=== PATIENT | male | born 1965 | race Caucasian/White ===

== ENCOUNTER 2023-09-28 07:20 | Outpatient (OUT) | payer BC, SELFPAY ==
[2023-09-28 07:58] LABS: Basophils Percent Auto 0.7 % (0.2-2.0); Eosinophils Absolute Auto 0.3 10^3/uL (0.0-0.7); Eosinophils Percent Auto 4.4 % (0.9-7.0); Hemoglobin 14.1 g/dL (14.0-18.0); Immature Granulocytes Abs Auto 0.03 10^3/uL (0.00-0.03); Immature Granulocytes Pct Auto 0.5 % (0.0-0.5); Lymphocytes Absolute Auto 1.3 10^3/uL (1.2-3.8); Lymphocytes Percent Auto 22.6 % (20.5-60.0); Mean Corpuscular Hemoglobin 27.9 pg (25.9-34.0); Mean Corpuscular Volume 87.1 fL (80.0-94.0); Mean Platelet Volume 11.7 fL (9.5-13.5); Monocytes Absolute Auto 0.6 10^3/uL (0.3-0.8); Monocytes Percent Auto 10.2 % (1.7-12.0); Neutrophils Absolute Auto 3.5 10^3/uL (1.4-6.5); Neutrophils Percent Auto 61.6 % (43.0-75.0); Platelet Count 186 10^3/uL (150-450); Red Blood Count 5.05 10^6/uL (4.70-6.10); Red Cell Distribution Width 13.8 % (11.0-15.0); White Blood Count 5.7 10^3/uL (4.0-11.0)
[2023-09-28 08:39] LABS: Prostate Specific Antigen Scrn 1.23 ng/mL (<=4.00)
[2023-09-28 11:34] LABS: Alanine Aminotransferase 55 U/L (16-63); Albumin Globulin Ratio 1.2; Albumin Level 3.8 g/dL (3.4-5.0); Alkaline Phosphatase 92 U/L (46-116); Anion Gap 10.9; Aspartate Amino Transferase 24 U/L (15-37); Bilirubin Direct 0.1 mg/dL (0.0-0.2); Bilirubin Total 0.7 mg/dL (0.2-1.0); Calcium 8.6 mg/dL (8.5-10.1); Carbon Dioxide 27.2 mmol/L (21.0-32.0); Chloride 105 mmol/L (98-107); Chol HDL Ratio 4.7; Cholesterol 166 mg/dL (<=200); Estimated GFR (African America >60 (>=60); Estimated GFR (Non-African Ame >60 (>=60); Globulin 3.3 g/dL; Glucose 134 mg/dL (74-106); HDL Cholesterol 35 mg/dL (40-60); Potassium 4.1 mmol/L (3.5-5.1); Sodium 139 mmol/L (136-145); Thyroid Stimulating Hormone 3.821 uIU/mL (0.358-3.740); Total Protein 7.1 g/dL (6.4-8.2); Triglycerides 135 mg/dL (<=150)
[2023-09-28 12:28] LABS: Estimated Average Glucose 128 mg/dL; Glycohemoglobin A1C 6.1 % (4.5-6.2)
== END 2023-09-28 07:21 | disposition home or self-care (01) ==
LOC: LAB 07:20
PROVIDERS: PCP Family Medicine; Visit Provider Family Medicine
DX: Z00.00 Encounter for general adult medical examination without abnormal findings (principal)
CPT/HCPCS: 36415; 80048; 80061; 80076; 83036; 84443; 85025; G0103

== ENCOUNTER 2024-12-12 07:28 | Outpatient (OUT) | payer BC, SELFPAY ==
--- OUTSIDE RECORDS SUMMARY | 2024-12-12 07:30 | XMS_ITS | CCD ---
Author Organization [facility] Care Team Providers Care Print Room Worker Name Role Phone KAT, DR SHARATH Alexis Primary Care Unavailable KASH WOLFE Attending Unavailable AIDEN, KASH Consulting Unavailable AIDEN, KASH Admitting Unavailable KAT, DR SHARATH Alexis Primary Care Unavailable KAT, DR SHARATH Alexis Admitting Unavailable KAT, DR SHARATH Alexis Attending Unavailable KAT, DR SHARATH Alexis Consulting Unavailable KAT, DR SHARATH Alexis Admitting Unavailable KAT, DR SHARATH Alexis Attending Unavailable KASH WOLFE Consulting Unavailable KAT, DR SHARATH Alexis Primary Care Unavailable KAT, DR SHARATH Alexis Admitting Unavailable ALICEA, DR SHARATH Alexis Attending Unavailable KAT, DR SHARATH Alexis Consulting Unavailable KAT, DR SHARATH Alexis Primary Care Unavailable Leann Franco Attending Unavailable Marissa Tsai Unavailable SABINO MORFIN Attending Unavailable Medications Current Medications Medication Drug Class(es) Dates Sig (Normalized) Sig (Original) benzonatate 100 mg oral capsule (1 source) Non-narcotic Antitussive Start: 07-19-2023 take 1 capsule by mouth three times daily as needed Tessalon Perles 100 MG 1 capsule as needed Orally Three times a day for 7 days Jun, Active bisoprolol fumarate 5 mg / hydroCHLOROthiazide 6.25 mg oral tablet (1 source) Thiazide Diuretic, beta-Adrenergic Tyrone Bisoprolol-hydr oCHLOROthiazide 5-6.25 MG Oral for 90 Days Active predniSONE 20 mg oral tablet (1 source) Start: 07-19-2023 take 1 tablet by mouth every twelve hours prednisone 20 MG 1 tablet Orally BID for 5 Jun, Active Completed/Discontinued Medications Medication Drug Class(es) Dates Sig (Normalized) Sig (Original) sildenafil 100 mg oral tablet (1 source) Phosphodiesterase 5 Inhibitor take 1 tablet by mouth once daily as needed Sildenafil Citrate 100 MG TAKE 1 TABLET BY MOUTH EVERY DAY NEEDED Oral for 30 Days Not-Taking Problems Active Problems Problem Classification Problem Date Documented Da te Episodic/Chronic Other screening for suspected conditions (not mental disorders or infectious disease) (1 source) Encounter for screening for malignant neoplasm of prostate; Translations: [ENC SCREEN MALIG NEOPLASM PROSTATE] Onset: 09-30-2022 Episodic Other upper respiratory infections (1 source) Acute upper respiratory infection, unspecified Episodic Unclassified (3 sources) CONTACT W/AND (SUSP) EXPOS COVID-19; Translations: [CONTACT W/AND (SUSP) EXPOS COVID-19] Onset: 02-18-2022 Viral infection (1 source) COVID-19; Translations: [COVID-19] Onset: 02-12-2022 Past or Other Problems Problem Classification Problem Date Documented Da te Episodic/Chronic Unclassified (1 source) CONTACT W/AND (SUSP) EXPOS COVID-19; Translations: [CONTACT W/AND (SUSP) EXPOS COVID-19] Onset: 02-17-2022 Unclassified (1 source) Contact with and (suspected) exposure to covid-19 Z20.822 Results Test Name Value Interpretation Reference Range Facility COVID + FLU Quick Testingon 07-19-2023 SARS-CoV-2 (COVID-19) RNA SALENA+probe Ql (Unsp spec) Negative [facility] [employer] Other COVID + FLU Quick Testing Negative [facility] [employer] Other Lab [facility] 04-12-2023 Lab Reports [id number]#[id number]:127 Normal [facility] Formson 03-22-2023 Forms [id number]#[id number]:127 Normal [facility] Ambulatory Visit Summaryon 0 03-08-2023 Ambulatory Visit Summary LINNETTE MARTINEZ :1965 Visit Date:03/08/2023 Ambulatory Visit Instructions Your Diagnosis Hypertension Erectile dysfunction Colon cancer screening BMI 32.0-32.9,adult Non-smoker Your Care Team Attending Physician - Leann Parsons Primary Care Physician - Leann Parsons This Is Your Medications List bisoprolol-hydroch lorothiazide (bisoprolol-hydroc hlorothiazide 5 mg-6.25 mg Tab) sildenafil (sildenafil 100 mg Tab) Discharge Vitals Temperature (Oral) 36.5 ?C Heart Rate (Peripheral) 64 Respiratory Rate 16 Blood Pressure 136/84 Height 182 cm Height 72 in Weight 107.5 kg Weight 236.5 lb BMI 32.45 Medications What How Much When Instructions Changed bisoprolol-hydroch lorothiazide (bisoprolol-hydroc hlorothiazide 5 mg-6.25 mg Tab) 1 Tablets By Mouth Every day Pickup at [facility] Changed sildenafil (sildenafil 100 mg Tab) 1 Tablets By Mouth Every day as needed for Other (see comment) 1 hour before sexual activity Pickup at [facility] Pharmacy Information [facility]: [address] [facility] LUIS CARLOS Diaz [phone] [facility]: [address] [place], [place] [phone] Allergies No Known Allergies Problems Ongoing - Any problem that you are currently receiving treatment for. Colon cancer screening Erectile dysfunction Hypertension [facility] Ambulatory Visit Summary LINNETTE MARTINEZ :1965 Visit Date:03/08/2023 Ambulatory Visit Instructions Your Diagnosis Hypertension Erectile dysfunction Colon cancer screening BMI 32.0-32.9,adult Non-smoker Your Care Team Attending Physician - Leann Parsons Primary Care Physician - Leann Parsons This Is Your Medications List bisoprolol-hydroch lorothiazide (bisoprolol-hydroc hlorothiazide 5 mg-6.25 mg Tab) sildenafil (sildenafil 100 mg Tab) Discharge Vitals Temperature (Oral) 36.5 ?C Heart Rate (Peripheral) 64 Respiratory Rate 16 Blood Pressure 136/84 Height 182 cm Height 72 in Weight 107.5 kg Weight 236.5 lb BMI 32.45 Medications What How Much When Instructions Changed bisoprolol-hydroch lorothiazide (bisoprolol-hydroc hlorothiazide 5 mg-6.25 mg Tab) 1 Tablets By Mouth Every day Pickup at [facility] Changed sildenafil (sildenafil 100 mg Tab) 1 Tablets By Mouth Every day as needed for Other (see comment) 1 hour before sexual activity Pickup at [facility] Pharmacy Information [facility]: [address] [facility] Koby CaroLUIS CARLOS [phone] [facility]: [address] [place] [phone] Allergies No Known Allergies Problems Ongoing - Any problem that you are currently receiving treatment for. Colon cancer screening Erectile dysfunction Hypertension [facility] Ambulatory Visit Summary MICHELLEYOSELYNLINNETTE J :1965 Visit Date:03/08/2023 Ambulatory Visit Instructions Your Diagnosis Hypertension Erectile dysfunction BMI 32.0-32.9,adult Non-smoker Your Care Team Attending Physician - Leann Parsons Primary Care Physician - Leann Parsons This Is Your Medications List bisoprolol-hydroch lorothiazide (bisoprolol-hydroc hlorothiazide 5 mg-6.25 mg Tab) sildenafil (sildenafil 100 mg Tab) Discharge Vitals Temperature (Oral) 36.5 ?C Heart Rate (Peripheral) 64 Respiratory Rate 16 Blood Pressure 136/84 Height 182 cm Height 72 in Weight 107.5 kg Weight 236.5 lb BMI 32.45 Medications What How Much When Instructions Changed bisoprolol-hydroch lorothiazide (bisoprolol-hydroc hlorothiazide 5 mg-6.25 mg Tab) 1 Tablets By Mouth Every day Pickup at [facility] Changed sildenafil (sildenafil 100 mg Tab) 1 Tablets By Mouth Every day as needed for Other (see comment) 1 hour before sexual activity Pickup at [facility] Pharmacy Information [facility]: [address] [facility] Koby LUIS CARLOS Caro [phone] [facility]: [address] [place] [phone] Allergies No Known Allergies Problems Ongoing - Any problem that you are currently receiving treatment for. Erectile dysfunction Hypertension [facility] Family Medicine Office/Clini c Noteon 03-08-2023 Family Medicine Office/Clinic Note HPI Staff Linnette is a 57 year old male presenting to establish care Establish Care: History: Any previous diagnosis: HTN, ADENIKE, ED History of seeing any specialist: Ophthalmolgist Dr Walters When was your last doctors visit: Last provider: Dr Alicea Any recent labs: 09/29/22 Health Maintenance UTD: Colonoscopy: 2007 Acute: Current issues/complaints: pt needs refill on Bisoprolol , no concerns History of Present Illness pt presents today to establish care Review of Systems PHQ Score Initial Depression Screen Score: 0 ROS - Provider Constitutional: no fever, no chills, no sweats, no fatigue Respiratory: no shortness of breath, no cough, no orthopnea, no wheezing. Cardiovascular: no chest pain, no palpitations, no edema. Neurologic: no headache, no dizziness, no numbness, no weakness. Physical Exam Vitals & Measurements T: 36.5 ?C(Oral) HR: 64(Peripheral) RR: 16 BP: 136/84 SpO2: 98% HT: 72 in HT: 182 cm WT: 107.5 kg WT: 236.5 lb BMI: 32.45 General: alert, no acute distress ENMT: oral mucosa moist, no pharyngeal erythema or exudate Cardiovascular: regular rate and rhythm, normal peripheral perfusion Respiratory: Lungs CTA, respirations non labored Extremities: no deformity, no trauma Neurological: oriented x 4, LOC appropriate for age, CN II-XII intact, motor strength equal & normal bilaterally, speech normal Assessment/Plan 1. Hypertension (I10: Essential (primary) hypertension) pt presents today to establish care. is in need of refills on BP medication. labs from September reviewed. lab slip for [facility] provided pt will have them drawn in September again and he will return to office after have labs drawn to review. all questions answered. RTC in September for wellness exam 2. Erectile dysfunction (N52.9: Male erectile dysfunction, unspecified) pt is in need of refill. asks to send it to [facility] 3. BMI 32.0-32.9,adult (Z68.32: Body mass index [BMI] 32.0-32.9, adult) BMI education complete 4. Non-smoker (Z78.9: Other specified health status) continue not smoking Orders: bisoprolol-hydroch lorothiazide, 1 tab(s), Oral, Daily, 90 tab(s), Refill(s) 2, [facility], 182, cm, 03/08/23 8:24:00 EDT, Height/Length Dosing, 107.5, kg, 03/08/23 8:24:00 EDT, Weight Dosing sildenafil, 100 mg = 1 tab(s), Oral, Daily, PRN Other (see comment), 1 hour before sexual activity, # 30 tab(s), Refills(s) 1, Pharmacy: [facility], 182, cm, 03/08/23 8:24:00 EDT, Height/Length Dosing, 107.5, kg, 03/08/23 8:24:00 EDT, Weight Dosing Follow-up No qualifying data available Problem List/Past Medical History Ongoing Erectile dysfunction Hypertension Historical No qualifying data Medications bisoprolol-hydroch lorothiazide 5 mg-6.25 mg Tab, 1 tab(s), Oral, Daily, 2 refills sildenafil 100 mg Tab, 100 mg= 1 tab(s), Oral, Daily, PRN, 1 refills Allergies No Known Allergies Social History Tobacco Never (less than 100 in lifetime) Tobacco Use:. Never Smokeless Tobacco Use:. Household tobacco concerns: No., 03/08/2023 Family History Hyperlipidemia: Mother. Hypertension: Mother. Thrombus: Mother and Father. Immunizations Vaccine Date Status SARS-CoV-2 (COVID-19) mRNA-1273 vaccine 10/01/2020 Recorded SARS-CoV-2 (COVID-19) mRNA-1273 vaccine 09/02/2020 Recorded Normal [facility] Comment on above: Result Comment: Elec tronically Signed By: Leann Parsons\.br\Date and Time Signed: 03/08/23 08:44 EDT Lab Report[facility] 03-03-2023 Lab Reports [id number]:127 Normal [facility] CBC AUTO DIFFon 09-29-2022 BASO # 0.1 103/ul Normal 0.0-0.1 [facility] Comment on above: Performed By: #### C BC #### [facility] [address] [place] [address] Dr. Miguel Maharaj Basophils/100 WBC (Bld) 0.7 % Normal 0.2-2.0 [facility] Comment on above: Performed By: #### C BC #### [facility] [address] [place] [address] Dr. Miguel Maharaj EO # 0.3 103/ul Normal 0.0-0.7 [facility] Comment on above: Performed By: #### C BC #### [facility] [address] [place] [address] Dr. Miguel Maharaj Eosinophils/100 WBC (Bld) 3.8 % Normal 0.9-7.0 [facility] Comment on above: Performed By: #### C BC #### [facility] [address] [place] [address] Dr. Miguel Maharaj Erythrocyte distribution width (RBC) [Ratio] 12.9 % Normal 11.0-15.0 [facility] Comment on above: Performed By: #### C BC #### [facility] [address] [place] [address] Dr. Miguel Maharaj Hematocrit (Bld) [Volume fraction] 44.9 % Normal 42.0-54.0 [facility] Comment on above: Performed By: #### C BC #### [facility] [address] [place] [address] Dr. Miguel Maharaj Hemoglobin (Bld) [Mass/Vol] 14.7 g/dL Normal 14.0-18.0 [facility] Comment on above: Performed By: #### C BC #### [facility] [address] [place] [address] Dr. Miguel Maharaj IG # 0.02 10e3/ul Normal 0.00-0.03 [facility] Comment on above: Performed By: #### C BC #### [facility] [address] [place] [address] Dr. Miguel Maharaj IG % 0.3 % Normal 0.0-0.5 [facility] Comment on above: Performed By: #### C BC #### [facility] [address] [place] [address] Dr. Miguel Maharaj LYMPH # 1.3 103/ul Normal 1.2-3.8 [facility] Comment on above: Performed By: #### C BC #### [facility] [address] [place] [address] Dr. Miguel Maharaj Lymphocytes/100 WBC (Bld) 19.0 % Critically low 20.5-60.0 [facility] Comment on above: Performed By: #### C BC #### [facility] [address] [place] [address] Dr. Miguel Maharaj MANUAL DIFF REQ NO Normal [facility] Comment on above: Performed By: #### C BC #### [facility] [address] [place] [address] Dr. Miguel Maharaj MCH (RBC) [Entitic mass] 29.1 pg Normal 25.9-34.0 [facility] Comment on above: Performed By: #### C BC #### [facility] [address] [place] [address] Dr. Miguel Maharaj MCHC (RBC) [Mass/Vol] 32.7 g/dL Normal 29.9-35.2 [facility] Comment on above: Performed By: #### C BC #### [facility] [address] [place] [address] Dr. Miguel Maharaj MCV (RBC) [Entitic vol] 88.7 fL Normal 80.0-94.0 [facility] Comment on above: Performed By: #### C BC #### [facility] [address] [place] [address] Dr. Miguel Maharaj MONO # 0.7 103/ul Normal 0.3-0.8 [facility] Comment on above: Performed By: #### C BC #### [facility] [address] [place] [address] Dr. Miguel Maharaj Monocytes/100 WBC (Bld) 9.6 % Normal 1.7-12.0 [facility] Comment on above: Performed By: #### C BC #### [facility] [address] [place] [address] Dr. Miguel Maharaj NEUT # 4.6 103/ul Normal 1.4-6.5 [facility] Comment on above: Performed By: #### C BC #### [facility] [address] [address] [address] Miguel Maharaj Neutrophils/100 WBC (Bld) 66.6 % Normal 43.0-75.0 [facility] Comment on above: Performed By: #### C BC #### [facility] [address] [place] [address] Dr. Miguel Maharaj Platelet mean volume (Bld) [Entitic vol] 12.0 fL Normal 9.5-13.5 [facility] Comment on above: Performed By: #### C BC #### [facility] [address] [place] [address] Dr. Miguel Maharaj PLT 187 103/ul Normal 150-450 [facility] Comment on above: Performed By: #### C BC #### [facility] [address] [place] [address] Dr. Miguel Maharaj RBC 5.06 106/ul Normal 4.70-6.10 [facility] Comment on above: Performed By: #### C BC #### [facility] [address] [place] [address] Dr. Miguel Maharaj WBC 6.9 103/ul Normal 4.0-11.0 [facility] Comment on above: Performed By: #### C BC #### [facility] [address] [place] [address] Dr. Miguel Maharaj GLYCOHEMOGLOBIN A1Con 2022 ADA RECOMMENDATION SEE BELOW Normal [facility] Comment on above: Result Comment: ADA RECOMMENDED LIMIT 4.0 - 6.0 ADA THERAPEUTIC TARGET < 7.0 ACTION SUGGESTED > 7.0 Performed By: #### L IPID, CMP #### [facility] [address] [place] [address] Dr. Miguel Maharaj Glucose [Mass/Vol] 123 mg/dL Normal [facility] Comment on above: Performed By: #### L IPID, CMP #### [facility] [address] [place] [address] Dr. Miguel Maharaj HbA1c (Bld) [Mass fraction] 5.9 % Normal 4.5-6.2 [facility] Comment on above: Performed By: #### L IPID, CMP #### [facility] [address] [place], [place] [address] Dr. Miguel Maharaj LIPID PROFILEon 09-29-2022 CHOL-HDL RATIO NORM SEE BELOW Normal [facility] Comment on above: Result Comment: 3.3 - 4.4 LOW RISK 4.4 - 7.1 AVERAGE RISK 7.1 - 11.0 MODERATE RISK >11.0 HIGH RISK Performed By: #### L IPID, CMP #### [facility] [address] [address] [address] Miguel Maharaj Cholesterol [Mass/Vol] 161 mg/dL Normal <=200 [facility] Comment on above: Performed By: #### L IPID, CMP #### [facility] [address] [address] [address] Miguel Maharaj Cholesterol in HDL [Mass/Vol] 34 mg/dL Critically low 40-60 [facility] Comment on above: Performed By: #### L IPID, CMP #### [facility] [address] [address] [address] Miguel Maharaj Cholesterol in LDL [Mass/Vol] 101.0 mg/dL Normal [facility] Comment on above: Performed By: #### L IPID, CMP #### [facility] [address] [place], [place] [address] Dr. Miguel Maharaj Cholesterol.total/Ch olesterol in HDL [Mass ratio] 4.7 {ratio} Normal [facility] Comment on above: Performed By: #### L IPID, CMP #### [facility] [address] [place], [place] [address] Dr. Miguel Maharaj HDL NORMAL > or = 60 mg/dl - LOW CARDIOVASCULAR RISK <40 mg/dl - HIGH CARDIOVASCULAR RISK Normal [facility] Comment on above: Performed By: #### L IPID, CMP #### [facility] [address] [id number] [address] Miguel Maharaj LDL CALC NORMAL SEE BELOW Normal [facility] Comment on above: Result Comment: <100 mg/dl OPTIMAL 100 - 129 mg/dl NEAR OR ABOVE OPTIMAL 130 - 159 mg/dl BORDERLINE HIGH 160 - 189 mg/dl HIGH >190 mg/dl VERY HIGH Performed By: #### L IPID, CMP #### [facility] [address] [place] [address] Dr. Miguel Maharaj Triglyceride [Mass/Vol] 130 mg/dL Normal <=150 [facility] Comment on above: Performed By: #### L IPID, CMP #### [facility] [address] [place] [address] Dr. Miguel Maharaj VLDL CALC 26.0 mg/dL Normal [facility] Comment on above: Performed By: #### L IPID, CMP #### [facility] [address] [place] [address] Dr. Miguel Maharaj PROF 14(COMP METB)on 023 Albumin [Mass/Vol] 4.0 g/dL Normal 3.4-5.0 [facility] Comment on above: Performed By: #### L IPID, CMP #### [facility] [address] [place] [address] Dr. Miguel Maharaj Albumin/Globulin [Mass ratio] 1.3 {ratio} Normal [facility] Comment on above: Performed By: #### L IPID, CMP #### [facility] [address] [place] [address] Dr. Miguel Maharaj ALP [Catalytic activity/Vol] 95 U/L Normal 46-116 [facility] Comment on above: Performed By: #### L IPID, CMP #### [facility] [address] [place] [address] Dr. Miguel Maharaj ALT [Catalytic activity/Vol] 52 U/L Normal 16-63 [facility] Comment on above: Performed By: #### L IPID, CMP #### [facility] [address] [place] [address] Dr. Miguel Maharaj Anion gap [Moles/Vol] 14.8 mmol/L Normal [facility] Comment on above: Performed By: #### L IPID, CMP #### [facility] [address] [address] [address] Miguel Maharaj AST [Catalytic activity/Vol] 27 U/L Normal 15-37 [facility] Comment on above: Performed By: #### L IPID, CMP #### [facility] [address] [place] [address] Dr. Miguel Maharaj Bilirubin [Mass/Vol] 0.6 mg/dL Normal 0.2-1.0 [facility] Comment on above: Performed By: #### L IPID, CMP #### [facility] [address] [place] [address] Dr. Miguel Maharaj Calcium [Mass/Vol] 8.7 mg/dL Normal 8.5-10.1 [facility] Comment on above: Performed By: #### L IPID, CMP #### [facility] [address] [place] [address] Dr. Miguel Maharaj Chloride [Moles/Vol] 105 mmol/L Normal 98-107 [facility] Comment on above: Performed By: #### L IPID, CMP #### [facility] [address] [place] [address] Dr. Miguel Maharaj CO2 [Moles/Vol] 25.5 mmol/L Normal 21.0-32.0 [facility] Comment on above: Performed By: #### L IPID, CMP #### [facility] [address] [place] [address] Dr. Miguel Maharaj Creatinine [Mass/Vol] 0.94 mg/dL Normal 0.70-1.30 [facility] Comment on above: Performed By: #### L IPID, CMP #### [facility] [address] [place] [address] Dr. Miguel Maharaj EGFR-AF FRENCH >60 Normal >=60 [facility] Comment on above: Performed By: #### L IPID, CMP #### [facility] [address] [place] [address] Dr. Miguel Maharaj EGFR-NON AF FRENCH >60 Normal >=60 [facility] Comment on above: Performed By: #### L IPID, CMP #### [facility] [address] [address] [address] Miguel Maharaj Globulin (S) [Mass/Vol] 3.2 g/dL Normal [facility] Comment on above: Performed By: #### L IPID, CMP #### [facility] [address] [place] [address] Dr. Miguel Maharaj Glucose [Mass/Vol] 132 mg/dL Critically high 74-106 [facility] Comment on above: Performed By: #### L IPID, CMP #### [facility] [address] [place] [address] Dr. Miguel Maharaj Potassium [Moles/Vol] 4.3 mmol/L Normal 3.5-5.1 [facility] Comment on above: Performed By: #### L IPID, CMP #### [facility] [address] [place] [address] Dr. Miguel Maharaj Protein [Mass/Vol] 7.2 g/dL Normal 6.4-8.2 [facility] Comment on above: Performed By: #### L IPID, CMP #### [facility] [address] [place] [address] Dr. Miguel Maharaj Sodium [Moles/Vol] 141 mmol/L Normal 136-145 [facility] Comment on above: Performed By: #### L IPID, CMP #### [facility] [address] [place] [address] Dr. Miguel Maharaj Urea nitrogen [Mass/Vol] 16.0 mg/dL Normal 7.0-18.0 [facility] Comment on above: Performed By: #### L IPID, CMP #### [facility] [address] [place] [address] Dr. Migeul Maharaj Urea nitrogen/Creatinine [Mass ratio] 17.0 mg/mg Normal [facility] Comment on above: Performed By: #### L IPID, CMP #### [facility] [address] [place] [address] Dr. Miguel Maharaj CBC AUTO DIFFon 02-24-2022 BASO # 0.1 103/ul Normal 0.0-0.1 [facility] Comment on above: Performed By: #### C BC #### [facility] [address] [address] [address] Miguel Maharaj Basophils/100 WBC (Bld) 0.9 % Normal 0.2-2.0 [facility] Comment on above: Performed By: #### C BC #### [facility] [address] [address] [address] Miguel Maharaj EO # 0.3 103/ul Normal 0.0-0.7 [facility] Comment on above: Performed By: #### C BC #### [facility] [address] [place] [address] Dr. Miguel Maharaj Eosinophils/100 WBC (Bld) 4.0 % Normal 0.9-7.0 [facility] Comment on above: Performed By: #### C BC #### [facility] [address] [place] [address] Dr. Miguel Maharaj Erythrocyte distribution width (RBC) [Ratio] 12.8 % Normal 11.0-15.0 [facility] Comment on above: Performed By: #### C BC #### [facility] [address] [place] [address] Dr. Miguel Maharaj Hematocrit (Bld) [Volume fraction] 42.9 % Normal 42.0-54.0 [facility] Comment on above: Performed By: #### C BC #### [facility] [address] [place] [address] Dr. Miguel Maharaj Hemoglobin (Bld) [Mass/Vol] 14.1 g/dL Normal 14.0-18.0 [facility] Comment on above: Performed By: #### C BC #### [facility] [address] [place] [address] Dr. Miguel Maharaj IG # 0.03 10e3/ul Normal 0.00-0.03 [facility] Comment on above: Performed By: #### C BC #### [facility] [address] [place] [address] Dr. Miguel Maharaj IG % 0.5 % Normal 0.0-0.5 [facility] Comment on above: Performed By: #### C BC #### [facility] [address] [place] [address] Dr. Miguel Maharaj LYMPH # 1.5 103/ul Normal 1.2-3.8 [facility] Comment on above: Performed By: #### C BC #### [facility] [address] [place] [address] Dr. Miguel Maharaj Lymphocytes/100 WBC (Bld) 23.2 % Normal 20.5-60.0 [facility] Comment on above: Performed By: #### C BC #### [facility] [address] [place] [address] Dr. Miguel Maharaj MANUAL DIFF REQ NO Normal [facility] Comment on above: Performed By: #### C BC #### [facility] [address] [place] [address] Dr. Miguel Maharaj MCH (RBC) [Entitic mass] 29.3 pg Normal 25.9-34.0 [facility] Comment on above: Performed By: #### C BC #### [facility] [address] [place] [address] Dr. Miguel Maharaj MCHC (RBC) [Mass/Vol] 32.9 g/dL Normal 29.9-35.2 [facility] Comment on above: Performed By: #### C BC #### [facility] [address] [place] [address] Dr. Miguel Maharaj MCV (RBC) [Entitic vol] 89.2 fL Normal 80.0-94.0 [facility] Comment on above: Performed By: #### C BC #### [facility] [address] [place] [address] Dr. Miguel Maharaj MONO # 0.8 103/ul Normal 0.3-0.8 [facility] Comment on above: Performed By: #### C BC #### [facility] [address] [place] [address] Dr. Miguel Maharaj Monocytes/100 WBC (Bld) 11.8 % Normal 1.7-12.0 [facility] Comment on above: Performed By: #### C BC #### [facility] [address] [address] [address] Miguel Maharaj NEUT # 3.8 103/ul Normal 1.4-6.5 [facility] Comment on above: Performed By: #### C BC #### [facility] [address] [address] [address] Miguel Maharaj Neutrophils/100 WBC (Bld) 59.6 % Normal 43.0-75.0 [facility] Comment on above: Performed By: #### C BC #### [facility] [address] [address] [address] Miguel Maharaj Platelet mean volume (Bld) [Entitic vol] 11.6 fL Normal 9.5-13.5 [facility] Comment on above: Performed By: #### C BC #### [facility] [address] [place] [address] Dr. Miguel Maharaj PLT 188 103/ul Normal 150-450 [facility] Comment on above: Performed By: #### C BC #### [facility] [address] [place] [address] Dr. Miguel Maharaj RBC 4.81 106/ul Normal 4.70-6.10 [facility] Comment on above: Performed By: #### C BC #### [facility] [address] [place] [address] Dr. Miguel Maharaj WBC 6.4 103/ul Normal 4.0-11.0 [facility] Comment on above: Performed By: #### C BC #### [facility] [address] [place] [address] Dr. Miguel Maharaj GLYCOHEMOGLOBIN A1Con 2021 ADA RECOMMENDATION SEE BELOW Normal [facility] Comment on above: Result Comment: ADA RECOMMENDED LIMIT 4.0 - 6.0 ADA THERAPEUTIC TARGET < 7.0 ACTION SUGGESTED > 7.0 Performed By: #### A 1C #### [facility] [address] [place] [address] Dr. Miguel Maharaj Glucose [Mass/Vol] 117 mg/dL Normal [facility] Comment on above: Performed By: #### A 1C #### [facility] [address] [address] [address] Miguel Maharaj HbA1c (Bld) [Mass fraction] 5.7 % Normal 4.5-6.2 [facility] Comment on above: Performed By: #### A 1C #### [facility] [address] [address] [address] Miguel Maharaj LIPID PROFILEon 02-24-2022 CHOL-HDL RATIO NORM SEE BELOW Normal [facility] Comment on above: Result Comment: 3.3 - 4.4 LOW RISK 4.4 - 7.1 AVERAGE RISK 7.1 - 11.0 MODERATE RISK >11.0 HIGH RISK Performed By: #### C MP, LIPID #### [facility] [address] [place] [address] Dr. Miguel Maharaj Cholesterol [Mass/Vol] 165 mg/dL Normal <=200 [facility] Comment on above: Performed By: #### C MP, LIPID #### [facility] [address] [place] [address] Dr. Miguel Maharaj Cholesterol in HDL [Mass/Vol] 34 mg/dL Critically low 40-60 [facility] Comment on above: Performed By: #### C MP, LIPID #### [facility] [address] [place] [address] Dr. Miguel Maharaj Cholesterol in LDL [Mass/Vol] 107.6 mg/dL Normal [facility] Comment on above: Performed By: #### C MP, LIPID #### [facility] [address] [place] [address] Dr. Miguel Maharaj Cholesterol.total/Ch olesterol in HDL [Mass ratio] 4.9 {ratio} Normal [facility] Comment on above: Performed By: #### C MP, LIPID #### [facility] [address] [place] [address] Dr. Miguel Maharaj HDL NORMAL > or = 60 mg/dl - LOW CARDIOVASCULAR RISK <40 mg/dl - HIGH CARDIOVASCULAR RISK Normal [facility] Comment on above: Performed By: #### C MP, LIPID #### [facility] [address] [place] [address] Dr. Miguel Maharaj LDL CALC NORMAL SEE BELOW Normal [facility] Comment on above: Result Comment: <100 mg/dl OPTIMAL 100 - 129 mg/dl NEAR OR ABOVE OPTIMAL 130 - 159 mg/dl BORDERLINE HIGH 160 - 189 mg/dl HIGH >190 mg/dl VERY HIGH Performed By: #### C MP, LIPID #### [facility] [address] [address] [address] Miguel Maharaj Triglyceride [Mass/Vol] 117 mg/dL Normal <=150 [facility] Comment on above: Performed By: #### C MP, LIPID #### [facility] [address] [address] [address] Miguel Maharaj VLDL CALC 23.4 mg/dL Normal [facility] Comment on above: Performed By: #### C MP, LIPID #### [facility] [address] [address] [address] Miguel Maharaj PROF 14(COMP METB)on 022 Albumin [Mass/Vol] 4.0 g/dL Normal 3.4-5.0 [facility] Comment on above: Performed By: #### C MP, LIPID #### [facility] [address] [address] [address] Miguel Maharaj Albumin/Globulin [Mass ratio] 1.2 {ratio} Normal [facility] Comment on above: Performed By: #### C MP, LIPID #### [facility] [address] [address] [address] Miguel Maharaj ALP [Catalytic activity/Vol] 87 U/L Normal 46-116 [facility] Comment on above: Performed By: #### C MP, LIPID #### [facility] [address] [address] [address] Miguel Maharaj ALT [Catalytic activity/Vol] 45 U/L Normal 16-63 [facility] Comment on above: Performed By: #### C MP, LIPID #### [facility] [address] [address] [address] Miguel Maharaj Anion gap [Moles/Vol] 4.3 mmol/L Normal [facility] Comment on above: Performed By: #### C MP, LIPID #### [facility] [address] [address] [address] Miguel Maharaj AST [Catalytic activity/Vol] 12 U/L Critically low 15-37 [facility] Comment on above: Performed By: #### C MP, LIPID #### [facility] [address] [address] [address] Miguel Maharaj Bilirubin [Mass/Vol] 0.6 mg/dL Normal 0.2-1.0 [facility] Comment on above: Performed By: #### C MP, LIPID #### [facility] [address] [address] [address] Miguel Maharaj Calcium [Mass/Vol] 8.6 mg/dL Normal 8.5-10.1 [facility] Comment on above: Performed By: #### C MP, LIPID #### [facility] [address] [place] [address] Dr. Miguel Maharaj Chloride [Moles/Vol] 103 mmol/L Normal 98-107 [facility] Comment on above: Performed By: #### C MP, LIPID #### [facility] [address] [address] [address] Miguel Maharaj CO2 [Moles/Vol] 28.8 mmol/L Normal 21.0-32.0 [facility] Comment on above: Performed By: #### C MP, LIPID #### [facility] [address] [place] [address] Dr. Miguel Maharaj Creatinine [Mass/Vol] 1.10 mg/dL Normal 0.70-1.30 [facility] Comment on above: Performed By: #### C MP, LIPID #### [facility] [address] [address] [address] Miguel Maharaj EGFR-AF FRENCH >60 Normal >=60 [facility] Comment on above: Performed By: #### C MP, LIPID #### [facility] [address] [address] [address] Miguel Maharaj EGFR-NON AF FRENCH >60 Normal >=60 [facility] Comment on above: Performed By: #### C MP, LIPID #### [facility] [address] [address] [address] Miguel Maharaj Globulin (S) [Mass/Vol] 3.3 g/dL Normal [facility] Comment on above: Performed By: #### C MP, LIPID #### [facility] [address] [address] [address] Miguel Maharaj Glucose [Mass/Vol] 126 mg/dL Critically high 74-106 [facility] Comment on above: Performed By: #### C MP, LIPID #### [facility] [address] [place] [address] Dr. Miguel Maharaj Potassium [Moles/Vol] 4.1 mmol/L Normal 3.5-5.1 [facility] Comment on above: Performed By: #### C MP, LIPID #### [facility] [address] [place] [address] Dr. Miguel Maharaj Protein [Mass/Vol] 7.3 g/dL Normal 6.4-8.2 [facility] Comment on above: Performed By: #### C MP, LIPID #### [facility] [address] [place] [address] Dr. Miguel Maharaj Sodium [Moles/Vol] 132 mmol/L Critically low 136-145 [facility] Comment on above: Performed By: #### C MP, LIPID #### [facility] [address] [place] [address] Dr. Miguel Maharaj Urea nitrogen [Mass/Vol] 18.0 mg/dL Normal 7.0-18.0 [facility] Comment on above: Performed By: #### C MP, LIPID #### [facility] [address] [place] [address] Dr. Miguel Maharaj Urea nitrogen/Creatinine [Mass ratio] 16.4 mg/mg Normal [facility] Comment on above: Performed By: #### C MP, LIPID #### [facility] [address] [place] [address] Dr. Miguel Maharaj ASYMPTOMATIC COVID-19 ANTIGE Non 02-17-2022 EUA Statement SEE BELOW Normal [facility] Comment on above: Result Comment: This test has not been FDA cleared or approved, but has been authorized by the FDA under an Emergency Use Authorization (EUA) for use by authorized laboratories certified under CLIA that meet the requirements to perform moderate or high complexity testing. This test has been authorized only for the detection of proteins from SARS-CoV-2, not for any other viruses or pathogens. The emergency use of this test is authorized for the duration of the declaration that circumstances exist justifying the authorization of emergency use of in vitro diagnostic tests for detection and/or diagnosis of Covid-19 under section 564(b)(1) of the Act, 21 U.S.C. 360bbb-3(b)(1), unless the declaration is terminated or authorization is revoked sooner. Performed By: #### C VDAGA #### [facility] [address] [place] [address] Dr. Miguel Maharaj SARS-CoV-2 (COVID-19) RNA SALENA+probe Ql (Unsp spec) Negative Normal NEGATIVE [facility] Comment on above: Result Comment: Nega tive results are presumptive. They do not preclude infection and should not be used as the sole basis for treatment decisions. Additional confirmatory testing by a molecular method should be considered. Performed By: #### C VDAGA #### [facility] [address] [place] [address] Dr. Miguel Maharaj SYMPTOMATIC COVID-19 ANTIGEN on 02-11-2022 EUA Statement SEE BELOW Normal [facility] Comment on above: Result Comment: This test has not been FDA cleared or approved, but has been authorized by the FDA under an Emergency Use Authorization (EUA) for use by authorized laboratories certified under CLIA that meet the requirements to perform moderate or high complexity testing. This test has been authorized only for the detection of proteins from SARS-CoV-2, not for any other viruses or pathogens. The emergency use of this test is authorized for the duration of the declaration that circumstances exist justifying the authorization of emergency use of in vitro diagnostic tests for detection and/or diagnosis of Covid-19 under section 564(b)(1) of the Act, 21 U.S.C. 360bbb-3(b)(1), unless the declaration is terminated or authorization is revoked sooner. Performed By: #### C VDAGS #### [facility] [address] [address] [address] Miguel Maharaj SARS-CoV-2 (COVID-19) RNA SALENA+probe Ql (Unsp spec) Positive Critically abnormal NEGATIVE [facility] Comment on above: Performed By: #### C VDAGS #### [facility] [address] [address] [address] Miguel Maharaj Vital Signs Date Time Vital Sign Value Performing Clinician Facility 07-19-2023 10:10-0500 Body height 182.88 cm Marissa Tsai Other [facility] Other 07-19-2023 10:10-0500 Body mass index (BMI) [Ratio] 32.74 kg/m2 Marissa Tsai Other [facility] Other 07-19-2023 10:10-0500 Body temperature 97.9 [degF] Marissa Tsai Other [facility] Other 07-19-2023 10:10-0500 Body weight 109.5 kg Marissa Tsai Other [facility] Other 07-19-2023 10:10-0500 Diastolic blood pressure 94 mm[Hg] Marissa Tsai Other [facility] Other 07-19-2023 10:10-0500 Respiratory rate 18 /min Marissa Tsai Other [facility] Other 07-19-2023 10:10-0500 SaO2% (BldA) [Mass fraction] 97 % Marissa Tsai Other [facility] Other 07-19-2023 10:10-0500 Systolic blood pressure 150 mm[Hg] Marissa Tsai Other [facility] Other Encounters Encounter Date Encounter Type Care Provider Facility Start: 10-04-2023 End: 10-04-2023 ambulatory SABINO MORFIN Not Available Start: 07-19-2023 End: 07-19-2023 ambulatory Marissa Tsai Other [place] [facility] Other Start: 07-19-2023 Office outpatient ne w 20 minutes Marissa Tsai [facility] Start: 03-08-2023 End: 03-09-2023 ambulatory Leann L Salvador Facility:[facility] Start: 03-03-2023 ambulatory Leann Salvador Facility:[facility] Start: 09-30-2022 Encounter for genera l adult medical examination without abnormal findings DR SHARATH ALICEA [facility] Start: 09-29-2022 End: 09-30-[address] SHARATH ALICEA Facility:[facility] Start: 09-29-2022 End: 09-30-2022 Encounter for general adult medical examination without abnormal findings DR SHARATH ALICEA Facility:[facility] Start: 02-24-2022 End: 02-25-[address] SHARATH ALICEA Facility:[facility] Start: 02-17-2022 End: 02-17-[address] SHARATH ALICEA Facility:[facility] Start: 02-11-2022 End: 02-11-[address] SHARATH ALICEA Facility:[facility] Procedures Date Procedure Procedure Detail Performing Clinician Start: 09-29-[address] SHARATH MORRIS Comment on above: Performed By: #### L IPID, CMP #### [facility] [address] [place] [address] Dr. Miguel Maharaj Start: 02-24-[address] SHARATH MORRIS Comment on above: Performed By: #### P SASC #### [facility] [address] [place] [address] Dr. Miguel Maharaj Payers Date Payer Category Payer Unknown [id number] 2019 Unknown [id number] 1965 Unknown [id number] 2.16.84 [id number] 1965 Unknown [id number] 2.16.84 [id number] 1965 Unknown [id number] 2.16.84 [id number] 1965 Unknown [id number] 2.16.84 [id number] 1965 Unknown [id number] 2.16.8 [id number] 1965 Unknown [id number] 2.16.8 [id number] 1965 Unknown [id number] 2.16.84 [id number] Social History Date Type Detail Facility Unknown if ever smoked [facility] Other Sex Assigned At Sex Assigned At Bir th [facility] Other Evaluation note 07-19-2023 Note Date & Type Note Facility 07-19-2023 Evaluation note Encounter Date Diagnosis Assessment Notes Jun, Contact with and (suspected) exposure to covid-19 (ICD-10 - Z20.822) Jun, Viral URI with cough (ICD-10 - J06.9) Advised patient that rapid COVID/Influenza A/B tests were negative today in office. Advised that we will treat as viral URI. Advised that viral illnesses may last 7-10 days, antibiotics are not indicated at this time. Encouraged supportive care as directed, increase fluids and rest, Tylenol as directed, rx of prednisone and Tessalon Perles, OTC Flonase, cool mist humidifier, throat lozenges. Discussed infection control practices such as good hand washing and mask wearing. Patient to follow up with PCP if symptoms persist or worsen despite treatment. Immediate eval for SOB, difficulty breathing, chest pain, fevers that do not break with antipyretic or any other concerning symptoms as reviewed on patient education handout. Patient verbalizes understanding and is agreeable to treatment plan. Patient left in stable condition [facility] Other Summary Purpose Family History No Family History Records FoundNo Family History Records FoundNo Family History Records Found Advance Directives No Advanced Directives Records FoundNo Advanced Directives Records FoundNo Advanced Directives Records Found Additional Source Comments (unrecognized sect ion and content) No Status Records FoundNo Status Records FoundNo Status Records Found INFORMATION SOURCE (unrecogn ized section and content) DATE CREATED AUTHOR 09/30/2022 [facility] DATE CREATED AUTHOR AUTHOR'S ORGANIZ ATION 04/13/2023 [facility] DATE CREATED AUTHOR AUTHOR'S ORGANIZ ATION 10/05/2023 [facility] EPIC REASON FOR VISIT (unrecogniz ed section and content) UPPER RESPITORY, COUGH, CONS TANT, CAN'T GET RID OF FOR RECORDS PERTAINING TO PATIENTS WHO ARE OR HAVE BEEN ENROLLED IN A CHEMICAL DEPENDENCY/SUBSTANCEABUSE PROGRAM, SOME INFORMATION MAY BE OMITTED. This clinical summary was aggregated from multiple sources. Caution should be exercised in using it in the provision of clinical care. This summary normalizes information from multiple sources, and as a consequence, information in this document may materially change the coding, format and clinical context of patient data. In addition, data may be omitted in some cases. CLINICAL DECISIONS SHOULD BE BASED ON THE PRIMARY CLINICAL RECORDS. [employer] provides no warranty or guarantee of the accuracy or completeness of information in this document.
[2024-12-12 07:54] LABS: Basophils Percent Auto 0.6 % (0.2-2.0); Eosinophils Absolute Auto 0.3 10^3/uL (0.0-0.7); Eosinophils Percent Auto 4.8 % (0.9-7.0); Hematocrit 42.5 % (42.0-54.0); Hemoglobin 14.2 g/dL (14.0-18.0); Immature Granulocytes Abs Auto 0.02 10^3/uL (0.00-0.03); Immature Granulocytes Pct Auto 0.4 % (0.0-0.5); Lymphocytes Absolute Auto 1.2 10^3/uL (1.2-3.8); Lymphocytes Percent Auto 21.9 % (20.5-60.0); Mean Corpuscular HGB Conc 33.4 g/dL (29.9-35.2); Mean Corpuscular Volume 86.7 fL (80.0-94.0); Mean Platelet Volume 11.6 fL (9.5-13.5); Monocytes Absolute Auto 0.6 10^3/uL (0.3-0.8); Monocytes Percent Auto 11.5 % (1.7-12.0); Neutrophils Absolute Auto 3.2 10^3/uL (1.4-6.5); Neutrophils Percent Auto 60.8 % (43.0-75.0); Platelet Count 169 10^3/uL (150-450); Red Cell Distribution Width 12.8 % (11.0-15.0); White Blood Count 5.2 10^3/uL (4.0-11.0)
[2024-12-12 08:27] LABS: Alanine Aminotransferase 49 U/L (16-63); Albumin Globulin Ratio 1.3; Albumin Level 3.9 g/dL (3.4-5.0); Alkaline Phosphatase 103 U/L (46-116); Anion Gap 11.3; Aspartate Amino Transferase 24 U/L (15-37); BUN Creatinine Ratio 15.7; Bilirubin Direct 0.2 mg/dL (0.0-0.2); Bilirubin Total 0.7 mg/dL (0.2-1.0); Calcium 8.5 mg/dL (8.5-10.1); Chloride 105 mmol/L (98-107); Chol HDL Ratio 3.9; Cholesterol 140 mg/dL (<=200); Estimated GFR (African America >60 (>=60 mL/min/1.73m^2); Estimated GFR (Non-African Ame >60 (>=60 mL/min/1.73m^2); Globulin 3.1 g/dL; Glucose 134 mg/dL (74-106); HDL Cholesterol 36 mg/dL (40-60); Potassium 4.3 mmol/L (3.5-5.1); Sodium 141 mmol/L (136-145); Triglycerides 90 mg/dL (<=150)
[2024-12-12 08:51] LABS: Prostate Specific Antigen Scrn 1.22 ng/mL (<=4.00)
[2024-12-12 08:55] LABS: Estimated Average Glucose 128 mg/dL; Glycohemoglobin A1C 6.1 % (4.5-6.2)
== END 2024-12-12 07:29 | disposition home or self-care (01) ==
LOC: LAB 07:28
PROVIDERS: PCP Family Medicine; Visit Provider Family Medicine
DX: Z00.00 Encounter for general adult medical examination without abnormal findings (principal)
CPT/HCPCS: 36415; 80048; 80061; 80076; 83036; 84443; 85025; G0103

== ENCOUNTER 2025-08-20 00:21 | Emergency (ER) | payer BC, SELFPAY ==
[2025-08-20] VITALS (20 sets, daily range): BP systolic 123–168; BP diastolic 75–91; PULSE 52–69; TEMP 36.9; O2SAT 93–99; BMI 31.2
--- NOTE | 2025-08-20 00:36 | ECG_ITS ---
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 Measurements Intervals [place] Rate: 52 P: 36 MD: 140 QRS: 10 QRSD: 92 T: -5 QT: 402 QTc: 381 Interpretive Statements 1100 Sinus rhythm 4068 Nonspecific Twave abnormality 5233 Voltage criteria for LVH 9150 abnormal ECG No previous ECG available for comparison Electronically Signed On 08-21-2025 11:30:49 EST by VERN HUNT M.D.
--- NOTE | 2025-08-20 00:55 | ED.CHESTPAI1 ---
HPI - Chest Pain General Chief Complaint: Chest Pain Stated Complaint: CHEST PAIN Time Seen by Provider: 08/20/25 00:50 Source: patient Mode of arrival: walk-in Limitations: no limitations History of Present Illness HPI narrative: 59-year-old male, non-smoker with a history of hypertension presents for evaluation of substernal chest pain that started around 11 PM. He denies any radiation of the pain into his arm, back or jaw. He denies any shortness of breath dizziness or diaphoresis. He did take 2 baby aspirin earlier in the evening. He states that is starting to lighten up. He did have an episode when he belched and the pain resolved but then it came back. He does not have any lower extremity pain or swelling. He denies any fever or cough. Related Data Home Medications ?Medication ?Instructions ?Recorded ?Confirmed bisoprolol 5 tab 08/20/25 mg-hydrochlorothiazide 6.25 mg tablet sildenafil 100 mg tablet mg 08/20/25 Allergies Allergy/AdvReac Type Severity Reaction Status Date / Time No Known Drug Allergies Allergy Verified 08/20/25 00:37 Review of Systems ROS Status of ROS 10 or more systems reviewed and unremarkable except as noted in history and below PFSH PFSH Social History Little interest or pleasure in doing things: not at all Feeling down, depressed, or hopeless: not at all Exam Narrative Exam Narrative: Vital signs and Nursing Notes reviewed: Afebrile, bradycardic with a pulse of 52, blood pressure is elevated 168/91, he is not hypoxic with pulse ox of 99% on room air General: Awake, alert, oriented, no acute distress, lying comfortably on the stretcher HEENT: Normocephalic atraumatic, mucous membranes are moist and pink, eyes are clear, normal conjunctiva, vision is grossly intact Neck: Supple Chest: Lungs are clear to auscultation with good air entry, there is no wheezing rhonchi or rales appreciated no accessory muscle use, patient is speaking in complete sentences-no chest wall tenderness to palpation CVS: Regular rate and rhythm S1-S2 bradycardic in the 50s, no murmurs rubs or gallops, pulses are brisk and equal bilaterally ABD: Soft, nondistended, nontender, no rebound guarding or rigidity, bowel sounds are normal, no pulsatile masses appreciated Extremities: Moving all extremities, 1+ edema of the feet and ankles, no calf swelling or tenderness noted Skin: Normal in appearance without rash,pallor, petechiae or purpura Neuro: No focal deficits Constitutional Vital Signs, click to edit/add: Last Vital Signs Temp 98.4 F 08/20/25 00:33 Pulse 54 L 08/20/25 03:00 Resp 19 08/20/25 03:00 BP 127/78 08/20/25 03:00 Pulse Ox 97 08/20/25 03:00 O2 Del Method Room Air 08/20/25 00:33 Course Vital Signs Vital signs: Vital Signs Temperature 98.4 F 08/20/25 00:33 Pulse Rate 52 L 08/20/25 00:33 Respiratory Rate 14 08/20/25 00:33 Blood Pressure 168/91 H 08/20/25 00:33 Pulse Oximetry 99 08/20/25 00:33 Oxygen Delivery Method Room Air 08/20/25 00:33 Temperature 98.4 F 08/20/25 00:33 Pulse Rate 54 L 08/20/25 03:00 Respiratory Rate 19 08/20/25 03:00 Blood Pressure 127/78 08/20/25 03:00 Pulse Oximetry 97 08/20/25 03:00 Oxygen Delivery Method Room Air 08/20/25 00:33 MDM - Chest Pain MDM Narrative Medical decision making narrative: This 59-year-old male, non-smoker who has a history of hypertension and is on a beta-lucina presents for evaluation of substernal chest pain that started earlier in the evening. He denies any radiation of the pain. He does not have any shortness of breath dizziness or diaphoresis. He states at 1 point he belched and the pain went away but then recurred. He took 2 baby aspirin prior to coming to the emergency department. In the emergency department an EKG was done that is a sinus rhythm at 52 bpm with a normal axis and diffusely flattened T waves but otherwise normal EKG. He was medicated with additional 2 baby aspirin and IV Pepcid. Cardiac workup was ordered. He has a normal white count and hemoglobin. Electrolytes are normal. Initial troponin is normal. D-dimer is normal. Delta troponin was also ordered and is also negative. Is comfortable being discharged home at this time. He was encouraged to return to the emergency department for recurrent chest pain, chest pain associated with dizziness, diaphoresis shortness of breath or any concerns. Lab Data Labs: Lab Results 08/20/25 08/20/25 Range/Units 00:43 02:47 WBC 6.6 (4.0-11.0) 10^3/uL RBC 4.81 (4.70-6.10) 10^6/uL Hgb 14.2 (14.0-18.0) g/dL Hct 42.5 (42.0-54.0) % MCV 88.4 (80.0-94.0) fL MCH 29.5 (25.9-34.0) pg MCHC 33.4 (29.9-35.2) g/dL RDW 13.0 (11.0-15.0) % Plt Count 163 (150-450) 10^3/uL MPV 11.9 (9.5-13.5) fL Neut % (Auto) 55.5 (43.0-75.0) % Lymph % (Auto) 25.8 (20.5-60.0) % [place] % (Auto) 12.3 H (1.7-12.0) % Eos % (Auto) 5.3 (0.9-7.0) % Baso % (Auto) 0.8 (0.2-2.0) % Neut # (Auto) 3.7 (1.4-6.5) 10^3/uL Lymph # (Auto) 1.7 (1.2-3.8) 10^3/uL [place] # (Auto) 0.8 (0.3-0.8) 10^3/uL Eos # (Auto) 0.4 (0.0-0.7) 10^3/uL Baso # (Auto) 0.1 (0.0-0.1) 10^3/uL Abs Immat Gran (auto) 0.02 (0.00-0.03) 10^3/uL Imm/Tot Granulo (auto) 0.3 (0.0-0.5) % D-Dimer 0.28 (<=0.59) mg/L FEU Sodium 141 (136-145) mmol/L Potassium 4.4 (3.5-5.1) mmol/L Chloride 104 (98-107) mmol/L Carbon Dioxide 30.3 (21.0-32.0) mmol/L Anion Gap 11.1 BUN 21.0 H (7.0-18.0) mg/dL Creatinine 1.03 (0.70-1.30) mg/dL Est GFR ( Amer) >60 (>=60 mL/min/1.73m^2) Est GFR (Non-Af Amer) >60 (>=60 mL/min/1.73m^2) BUN/Creatinine Ratio 20.4 Glucose 129 H (74-106) mg/dL Calcium 8.8 (8.5-10.1) mg/dL Total Bilirubin 0.4 (0.2-1.0) mg/dL AST 24 (15-37) U/L ALT 48 (16-63) U/L Alkaline Phosphatase 111 (46-116) U/L Troponin I High Sens 5.6 6.3 (4.0-76.1) pg/mL Total Protein 7.2 (6.4-8.2) g/dL Albumin 3.9 (3.4-5.0) g/dL Globulin 3.3 g/dL Albumin/Globulin Ratio 1.2 Lipase 46.0 (16.0-77.0) U/L ECG Data Attestation: I personally reviewed and interpreted this ECG as follows: (Sinus rhythm at 52 bpm, normal axis, diffusely flattened T waves, Q-wave in lead III, no acute ST segment elevation or T wave inversion) Heart Score History: Slightly/Non-Suspicious ECG: Normal Age: >45-<65 years Risk Factors: 1 or 2 Risk Factors Troponin: <Normal Limit Total Heart Score Recommendations & Risks:: 2 Discharge Plan Discharge Chief Complaint: Chest Pain Clinical Impression: Atypical chest pain Patient Disposition: Home, Self-Care Time of Disposition Decision: 03:11 Condition: Good Prescriptions / Home Meds: No Action bisoprolol-hydrochlorothiazide 5-6.25 mg tablet sildenafil 100 mg tablet Print Language: Lithuanian Instructions: Noncardiac Chest Pain (ED) Referrals: Sergio Smith MD [Primary Care Provider, Family Practice] - 1 week
--- OUTSIDE RECORDS SUMMARY | 2025-08-20 01:00 | XMS_ITS | Continuity of Care Document ---
Author Organization [facility] 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 Care Team Information Rece iver Unavailable
--- OUTSIDE RECORDS SUMMARY | 2025-08-20 01:00 | XMS_ITS | Clinical Summary ---
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 90 tablet 5Active sildenafil (Viagra) 100 MG tablet Indications:Erectile dysfunction due to arterial insufficiencyTake 1 tablet (100 mg) by mouth if needed for erectile dysfunction 10 tablet 5Active Active Problems ProblemNoted DateDiagnosed ZeahWcsfdwnzeep42/16/2025Essential hypertension, bjcpxy9210/04/2023 Assessment & Plan (01/14/2025 10:54 AM EDT): BP controlled and monitor PRN. Assessment & Plan (10/04/2023 2:22 PM EST): BP controlled and monitor PRN. Benign atrial epkjpzhabq37/06/2024Erectile dysfunction due to arterial voebvhzmotepw28/06/2024nnual physical exam10/04/2023 Assessment & Plan (01/14/2025 10:54 AM EDT): Reviewed recent labs. Discussed proper diet and regular aerobic exercise. Need aerobic exercise 5-6days a week for 30 minutes at a time. Smaller portions and limit total calories. Cologuard normal in 2022. Tetanus every 10 years. Advised not to smoke. Assessment & Plan (10/04/2023 2:22 PM EST): Reviewed recent labs. Discussed proper diet and regular aerobic exercise. Need aerobic exercise 5-6days a week for 30 minutes at a time. Smaller portions and limit total calories. Cologuard normal in 2022. Tetanus every 10 years. Advised not to smoke. Discussed daily Aspirin therapy. ADENIKE (obstructive sleep apnea)10/04/2023 Assessment & Plan (01/14/2025 10:54 AM EDT): Sleeping well with CPAP and continue nightly. The patient is benefiting from PAP therapy. Script for new supplies to patient. Assessment & Plan (10/04/2023 2:23 PM EST): Sleeping well with CPAP and continue nightly. The patient is benefiting from PAP therapy. Script for new supplies to patient. Social History Tobacco UseTypesPacks/DayYears UsedDateSmoking Tobacco: NeverSmokeless Tobacco: Never Tobacco Cessation:Counseling Given: Not Answered Sex and Gender InformationValueDate RecordedSex Assigned at BirthNot on file Legal YnaKeoo3811/10/2022 6:51 PM EDTGender IdentityNot on fileSexual Orientation Not on file Last Filed Vital Signs Vital SignReadingTime TakenCommentsBlood Msecyati594/76001/14/2025 10:18 AM EDT Szbki365701/14/2025 10:18 AM ZEDBvvjktiedfh87.4 ??C (97.5 ??F)01/14/2025 10:18 AM EDTRespiratory Nymd637301/14/2025 10:18 AM EDTOxygen Wrbbzpejbt52%01/14/2025 10:18 AM EDTInhaled Oxygen Concentration--Mxlgcv954 kg (239 lb)01/14/2025 10:18 AM EDT Iioxaq933.9 cm (6')01/14/2025 10:18 AM EDTBody Mass Index32.41001/14/2025 10:18 AM EDT Plan of Treatment Health MaintenanceDue DateLast DoneCommentsCT Uhyliebhjuxo69/28/1968Colonoscopy 1967FIT1967FOBT1967 4577Plgjvsnhwfjpq46/28/1968COVID-19 Vaccine ( season)/10/2020, 09/02/2020Influenza Vaccine (#1) 2025olorectal Cancer Nbrppyotj64/03/2026FIT-DNA Pneumococcal Vaccine: Pediatrics (0 to 5 Years) and At-Risk Patients (6 to 64 Years)Aged OutNo longer eligible based on patient's age to complete this topic Insurance Care Teams Team MemberRelationshipSpecialtyStart DateEnd Date Sergio Smith MD PCP - GeneralFamily Medicine09/22/23 Sergio Smith MD [address] [facility] [place] [address] [facility]
[2025-08-20 01:01] LABS: Hematocrit 42.5 % (42.0-54.0); Hemoglobin 14.2 g/dL (14.0-18.0); Immature Granulocytes Abs Auto 0.02 10^3/uL (0.00-0.03); Immature Granulocytes Pct Auto 0.3 % (0.0-0.5); Lymphocytes Absolute Auto 1.7 10^3/uL (1.2-3.8); Mean Corpuscular HGB Conc 33.4 g/dL (29.9-35.2); Mean Corpuscular Hemoglobin 29.5 pg (25.9-34.0); Mean Corpuscular Volume 88.4 fL (80.0-94.0); Platelet Count 163 10^3/uL (150-450); Red Blood Count 4.81 10^6/uL (4.70-6.10); White Blood Count 6.6 10^3/uL (4.0-11.0)
[2025-08-20] MEDS: ASPIRIN 81 MG TAB.CHEW 162 MG PO (01:04)
[2025-08-20] MEDS: FAMOTIDINE/PF 20 MG/2 ML VIAL IV (01:06)
[2025-08-20 01:17] LABS: Alanine Aminotransferase 48 U/L (16-63); Albumin Globulin Ratio 1.2; Albumin Level 3.9 g/dL (3.4-5.0); Alkaline Phosphatase 111 U/L (46-116); Anion Gap 11.1; Aspartate Amino Transferase 24 U/L (15-37); Blood Urea Nitrogen 21.0 mg/dL (7.0-18.0); Calcium 8.8 mg/dL (8.5-10.1); Carbon Dioxide 30.3 mmol/L (21.0-32.0); Chloride 104 mmol/L (98-107); Estimated GFR (African America >60 (>=60 mL/min/1.73m^2); Estimated GFR (Non-African Ame >60 (>=60 mL/min/1.73m^2); Globulin 3.3 g/dL; Glucose 129 mg/dL (74-106); Lipase 46.0 U/L (16.0-77.0); Potassium 4.4 mmol/L (3.5-5.1); Sodium 141 mmol/L (136-145); Total Protein 7.2 g/dL (6.4-8.2)
--- NOTE | 2025-08-20 01:22 | XR_ITS ---
[facility] [place] [id number] Patient Name: LINNETTE MARTINEZ MRN: [id number] date: 1965 Sex: M Assigned Patient Location: ER Current Patient Location: Accession/Order Number: [id number] Exam Date: 08/20/2025 01:33 Report Date: 08/20/2025 08:56 At the request of: SERENA MAR MD Procedure: XR chest 1V PORTABLE AP ERECT CHEST 0112 hours CLINICAL HISTORY: Chest pain COMPARISON: None The heart is borderline prominent. There is no vascular congestion. There is minor scarring or atelectasis. No focal consolidation is noted. There is no effusion or pneumothorax. The osseous structures are intact. Dextroscoliotic curvature is present. XR/XR chest 1V IMPRESSION: NO ACUTE FINDINGS Impression dictated by: Shereen Thornton M.D. 08/20/2025 8:56 AM Dictation Location: [place] [address] Electronically authenticated by: [id number] Y Date: 08/20/2025 08:56
--- NOTE | 2025-08-20 03:38 | PC.NURSE ---
i gave this patient verbal and written discharge orders and this patient voices yes to understanding these. at time of discharge this patient voices no concerns, needs and shows no signs of distress
== END 2025-08-20 03:27 | disposition home or self-care (01) ==
PROVIDERS: Emergency Provider Emergency Medicine; PCP Family Medicine
DX: R07.89 Other chest pain (principal); I10 Essential (primary) hypertension
CPT/HCPCS: 36415; 71045; 80053; 83690; 84484; 85025; 85378; 93005; 96374; 99284; J3490